=== PATIENT | female | born 1950 | race Asian ===

== ENCOUNTER 2017-12-23 21:45 | Emergency (ER) | payer MEDICARE, OTHER ==
[2017-12-23] MEDS ORDERED: MECLIZINE 12.5 MG TABLET PO STA (21:52)
[2017-12-23] MEDS ORDERED: SODIUM CHLORIDE 0.9% 1,000 ML IV ONE (21:52)
[2017-12-23] MEDS ORDERED: ONDANSETRON 4 MG/2 ML VIAL IVP STA (22:34)
[2017-12-23] MEDS ORDERED: ONDANSETRON ODT 4 MG Prepack 2 TL STA (22:54)
--- NOTE | 2017-12-23 22:54 | ED Physician Documentation ---
History of Present Illness - Stated complaint Stated Complaint: DIZZY - Chief complaint Chief Complaint: Neuro - History obtained from History obtained from: Patient, Family - History of Present Illness Timing: Today - Additonal information Additional information: Patient is a 66 year old female with a history of vertigo who is presenting to the emergency department for vertigo. Patient states that she was going on a walk this evening when she developed vertigo. patient states that her symptoms resolve if she leans her head to the right and come back if she moves again. Review of Systems Ten Systems: 10 systems reviewed and negative Constitutional: denies: Fever, Chills Cardiac: denies: Chest pain / pressure, Palpitations GI: reports: Nausea. denies: Vomiting Neurologic: reports: Other (vertigo) PD PAST MEDICAL HISTORY - Past Medical History Past Medical History: Yes Cardiovascular: High cholesterol Neuro: Parkinson's GI: GERD - Past Surgical History Past Surgical History: Yes General: Cholecystectomy /[employer]: section - Present Medications Home Medications: Ambulatory Orders Medication Instructions Recorded Confirmed Simvastatin 20 mg ORAL QPM 03/06/15 03/06/15 Carbidopa/Levodopa 1 each PO QID 12/23/17 12/23/17 [Carbidopa-Levodopa 10-100 Tab] Cetirizine [ZyrTEC] 10 mg PO DAILY 12/23/17 12/23/17 Meclizine [Antivert] 25 mg PO Q6H #20 tablet 12/23/17 Ondansetron Odt [Zofran] 4 mg TL Q6H PRN #14 tablet 12/23/17 - Allergies Allergies/Adverse Reactions: Allergies Allergy/AdvReac Type Severity Reaction Status Date / Time No Known Drug Allergies Allergy Verified 03/06/15 01:33 - Social History Does the pt smoke?: No Smoking Status: Never smoker Does the pt drink ETOH?: No Does the pt have substance abuse?: No - Immunizations Immunizations are current?: Yes - POLST Patient has POLST: No PD ED PE NORMAL - HEENT HEENT: Atraumatic - Cardiac Cardiac: RRR - Respiratory Respiratory: No respiratory distress - Abdomen Abdomen: Soft, Non distended - Derm Derm: Normal color, Warm and dry - Extremities Extremities: No deformity - Neuro Neuro: No motor deficit, Normal speech Eye Opening: Spontaneous Motor: Obeys Commands Verbal: Oriented GCS Score: 15 PD ED PE EXPANDED - General General: Alert - Neuro Neuro: Alert and Oriented X 3, Normal motor, Normal Sensation, Normal Speech, PERRL, Nystagmus. No: Confused, Disoriented Results - Vitals Vitals: Vital Signs - 24 hr 12/23/17 12/23/17 12/23/17 21:50 22:36 23:02 Temperature 37 C Heart Rate 76 85 77 Respiratory 18 18 18 Rate Blood Pressure 158/96 H 131/103 H 133/93 H O2 Saturation 99 98 98 Oxygen O2 Source Room air PD MEDICAL DECISION MAKING - ED course Complexity details: reviewed old records, reviewed results, re-evaluated patient , considered differential, d/w patient, d/w family ED course: Patient was seen and examined at bedside. Patient's findings were consistent with benign positional vertigo. patient was treated with ns boluse and meclizine. eply maneuver was performed on the patient and her symptoms improved dramatically. patient was treated with zofran for nausea and tylenol for a headache. prescriptions were written and patient was stable for discharge with outpatient follow up. - Sepsis Event Vital Signs: Vital Signs - 24 hr 12/23/17 12/23/17 12/23/17 21:50 22:36 23:02 Temperature 37 C Heart Rate 76 85 77 Respiratory 18 18 18 Rate Blood Pressure 158/96 H 131/103 H 133/93 H O2 Saturation 99 98 98 Oxygen O2 Source Room air Departure - Departure Disposition: 01 Home, Self Care Clinical Impression: Acute onset of severe vertigo Condition: Good Instructions: ED BPV Vertigo, Meclizine Follow-Up: Provider,Other [Primary Care Provider] - Tomorrow Prescriptions: Meclizine [Antivert] 25 mg PO Q6H #20 tablet Ondansetron Odt [Zofran] 4 mg TL Q6H PRN #14 tablet PRN Reason: Nausea / Vomiting Comments: Your symptoms today are being caused by benign positional vertigo. It is important that you stay well hydrated and you can take the meclizine if your symptoms return. You should follow up with your doctor if your symptoms persist. You may return to the emergency department at any time for new, worsening or uncontrollable symptoms. Discharge Date/Time: 12/23/17 23:16
[2017-12-23] MEDS ORDERED: ACETAMINOPHEN 325 MG TABLET PO STA (22:56)
[2017-12-23 23:02] VITALS: BP 133/93
== END 2017-12-23 23:16 | disposition home or self-care (01) ==
LOC: ED 21:45
DX: R42 Dizziness and giddiness (principal); R11.0 Nausea; G20 Parkinson's disease
CPT/HCPCS: 96361; 96374; 99283; A9270

== ENCOUNTER 2020-05-26 17:27 | Emergency (ER) | payer MEDICARE, OTHER ==
[2020-05-26] MEDS ORDERED: ACETAMINOPHEN 325 MG TABLET PO STA (17:39)
[2020-05-26] MEDS ORDERED: ONDANSETRON 4 MG/2 ML VIAL IVP STA (17:39)
--- NOTE | 2020-05-26 17:41 | ED Physician Documentation ---
PD HPI SYNCOPE - Stated complaint Stated Complaint: FAINTED, HIT HEAD - History obtained from History obtained from: Patient - Additional information Additional information: 69-year-old woman with history of vertigo and Parkinson's was at the hardware store and she suddenly felt like she was spinning and then either fell or had a syncopal episode with loss of consciousness. She hit the back of her head on the ground. She has moderate headache and upper neck pain. No other injuries. She denies chest pain or trouble breathing. She is somewhat nauseous. 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 - Present Medications Home Medications: Ambulatory Orders Medication Instructions Recorded Confirmed Simvastatin 20 mg ORAL QPM 03/06/15 03/06/15 Carbidopa/Levodopa 1 each PO QID 12/23/17 12/23/17 [Carbidopa-Levodopa 10-100 Tab] Cetirizine [ZyrTEC] 10 mg PO DAILY 12/23/17 12/23/17 Meclizine [Antivert] 25 mg PO Q6H #20 tablet 12/23/17 Ondansetron Odt [Zofran] 4 mg TL Q6H PRN #14 tablet 12/23/17 Meclizine HCl [Antivert] 25 mg PO QID PRN #20 tablet 05/26/20 Ondansetron Odt [Zofran] 4 mg TL Q6H PRN #10 tablet 05/26/20 - Allergies Allergies/Adverse Reactions: Allergies Allergy/AdvReac Type Severity Reaction Status Date / Time No Known Drug Allergies Allergy Verified 05/26/20 17:44 - Social History Does the pt smoke?: No Smoking Status: Never smoker Does the pt drink ETOH?: No Does the pt have substance abuse?: No - Immunizations Immunizations are current?: Yes - POLST Patient has POLST: No PD ED PE NORMAL - Vitals Vital signs reviewed: Yes - General General: 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, No acute distress - HEENT HEENT: PERRL, EOMI, Other (There is a tender area just posterior to the vertex of the scalp that is slightly raised consistent with a hematoma) - Neck Neck: Other (Mild upper neck tenderness) - Cardiac Cardiac: RRR, No murmur - Respiratory Respiratory: No respiratory distress, Clear bilaterally - Abdomen Abdomen: Non tender, Non distended - Derm Derm: Normal color, Warm and dry - Extremities Extremities: No edema, No calf tenderness / cord - Neuro Neuro: 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, No motor deficit, No sensory deficit, Normal speech Results - Vitals Vitals: Vital Signs - 24 hr 05/26/20 05/26/20 17:30 17:44 Temperature 36.8 C 36.8 C Heart Rate 77 77 Respiratory 18 18 Rate Blood Pressure 148/96 H 148/96 H O2 Saturation 99 99 Oxygen O2 Source Room air - EKG (time done) 1743 Rate: Rate (enter#) (69) Rhythm: NSR, LAE [place]: Normal Intervals: Normal [place] QRS: LVH Ischemia: Non specific changes Computer interpretation: Agree with computer - Labs Labs: Laboratory Tests 05/26/20 05/26/20 05/26/20 17:41 18:12 18:12 WBC 5.7 RBC 4.36 Hgb 13.3 Hct 39.9 MCV 91.5 MCH 30.5 MCHC 33.3 RDW 12.5 Plt Count 238 MPV 10.6 Neut # (Auto) 2.8 Lymph # (Auto) 2.1 [place] # (Auto) 0.5 Eos # (Auto) 0.3 Baso # (Auto) 0.1 Absolute Nucleated RBC 0.00 Nucleated RBC % 0.0 Sodium 140 Potassium 3.8 Chloride 100 L Carbon Dioxide 26 Anion Gap 14.0 H BUN 17 Creatinine 0.9 Estimated GFR (MDRD) 62 L Glucose 112 H POC Whole Bld Glucose 131 H Calcium 9.3 - Rads (name of study) CT head and C-spine without contrast Radiology: EMP read contemporaneously (Degenerative changes of the spine without acute injury) PD MEDICAL DECISION MAKING - ED course ED course: 69-year-old woman had vertigo and a fall with loss of consciousness versus syncope. Her work-up here was negative for acute findings. Departure - Departure Disposition: 01 Home, Self Care Clinical Impression: Acute onset of severe vertigo Syncope Qualifiers: Syncope type: unspecified Qualified Code(s): R55 - Syncope and collapse Head injury Qualifiers: Encounter type: initial encounter Qualified Code(s): S09.90XA - Unspecified injury of head, initial encounter Condition: Good Record reviewed to determine appropriate education?: Yes Instructions: ED Head Injury Closed, ED Dizziness Syncope Fainting W Pre Prescriptions: Meclizine HCl [Antivert] 25 mg PO QID PRN #20 tablet PRN Reason: Dizziness Ondansetron Odt [Zofran] 4 mg TL Q6H PRN #10 tablet PRN Reason: Nausea / Vomiting Comments: Call your doctor to arrange a follow-up appointment, make the next available appointment. In the interim, return anytime if worse or if new symptoms develop.
[2020-05-26] MEDS ORDERED: ONDANSETRON ODT 4 MG TABLET TL STA (17:53)
[2020-05-26 18:18] LABS: BASOPHILS # (AUTO) 0.1 10^3/uL (0.0-0.1); BASOPHILS % (AUTO) 1.1 %; EOSINOPHILS # (AUTO) 0.3 10^3/uL (0.0-0.7); EOSINOPHILS % (AUTO) 4.9 %; HGB - HEMOGLOBIN 13.3 g/dL (12.0-16.0); LYMPHOCYTES # (AUTO) 2.1 10^3/uL (1.5-3.5); LYMPHOCYTES % (AUTO) 36.6 %; MEAN CORPUSCULAR HEMOGLOBIN 30.5 pg (27.0-31.0); MEAN CORPUSCULAR HGB CONC 33.3 g/dL (32.0-36.0); MEAN CORPUSCULAR VOLUME 91.5 fL (81.0-99.0); MEAN PLATELET VOLUME 10.6 fL (7.9-10.8); MONOCYTES # (AUTO) 0.5 10^3/uL (0.0-1.0); MONOCYTES % (AUTO) 8.7 %; NEUTROPHILS # (AUTO) 2.8 10^3/uL (1.5-6.6); NEUTROPHILS % (AUTO) 48.5 %; PLT - PLATELET COUNT 238 10^3/uL (130-450); RED BLOOD COUNT 4.36 10^6/uL (4.20-5.40); RED CELL DISTRIBUTION WIDTH 12.5 % (12.0-15.0); WHITE BLOOD COUNT 5.7 x10^3/uL (4.8-10.8)
[2020-05-26 18:26] LABS: CALCIUM 9.3 mg/dL (8.5-10.3); CREATININE 0.9 mg/dL (0.4-1.0)
--- NOTE | 2020-05-26 19:20 | CT Report ---
PROCEDURE: HEAD WO INDICATIONS: head injury TECHNIQUE: Noncontrast 4.5 mm thick angled axial sections acquired from the foramen magnum to the vertex. For r adiation dose reduction, the following was used: automated exposure control, adjustment of mA and/or kV according to patient size. COMPARISON: None. FINDINGS: Image quality: Excellent. CSF spaces: Basal cisterns are patent. No extra-axial fluid collections. Diffuse volume loss and mi ld enlargement of the ventricles. Brain: No midline shift. No intracranial masses or hemorrhage. Mild diffuse volume loss. skull and face: Calvarium and visualized facial bones are intact, without suspicious lesions. Sinuses: Visualized sinuses and mastoids are clear. IMPRESSION: No acute intracranial abnormality. Reviewed by: Neptali Turner on 05/26/2020 7:18 PM [facility] Approved by: Neptali Turner on 05/26/2020 7:18 PM [facility] Station ID: [id number]
--- NOTE | 2020-05-26 19:29 | CT Report ---
PROCEDURE: CERVICAL SPINE WO INDICATIONS: head injury TECHNIQUE: Noncontrast 3 mm thick sections acquired from the skull base to the T4 level. Sagittal and coronal r eformats were then constructed. For radiation dose reduction, the following was used: automated exp osure control, adjustment of mA and/or kV according to patient size. COMPARISON: None. FINDINGS: Image quality: Excellent. Bones: No fractures or dislocations. Visualized superior ribs are intact. Multilevel degenerative changes. Soft tissues: Prevertebral soft tissues are normal in thickness. No paravertebral hematomas. No ap ical pneumothoraces. IMPRESSION: 1. No acute abnormality of the cervical spine. 2. Multilevel degenerative changes. Reviewed by: Neptali Tunrer on 05/26/2020 7:28 PM [facility] Approved by: Neptali Turner on 05/26/2020 7:28 PM [facility] Station ID: [id number]
[2020-05-26 19:35] VITALS: BP 152/83
== END 2020-05-26 19:48 | disposition home or self-care (01) ==
LOC: ED 17:27
DX: R42 Dizziness and giddiness (principal); R55 Syncope and collapse; S09.90XA Unspecified injury of head, initial encounter; W18.39XA Other fall on same level, initial encounter; Y92.512 Supermarket, store or market as the place of occurrence of the external cause; G20 Parkinson's disease
CPT/HCPCS: 36415; 70450; 72125; 80048; 85025; 93005; 99284; A9270; Q0162

== ENCOUNTER 2023-12-09 08:52 | Outpatient (CLI) | payer MEDICARE, OTHER | END 2023-12-09 23:59 | disposition EMS.NT | LOC: EMS 08:52 | DX: R51.9 Headache, unspecified (principal); R10.11 Right upper quadrant pain; R42 Dizziness and giddiness ==

== ENCOUNTER 2023-12-09 09:49 | Emergency (ER) | payer MEDICARE, OTHER ==
[2023-12-09 10:39] LABS: BASOPHILS # (AUTO) 0.1 10^3/uL (0.0-0.1); BASOPHILS % (AUTO) 1.1 %; EOSINOPHILS # (AUTO) 0.4 10^3/uL (0.0-0.7); EOSINOPHILS % (AUTO) 7.1 %; HCT - HEMATOCRIT 42.2 % (37.0-47.0); LYMPHOCYTES # (AUTO) 1.3 10^3/uL (1.5-3.5); LYMPHOCYTES % (AUTO) 23.9 %; MEAN CORPUSCULAR HEMOGLOBIN 30.3 pg (27.0-31.0); MEAN CORPUSCULAR HGB CONC 33.2 g/dL (32.0-36.0); MEAN CORPUSCULAR VOLUME 91.3 fL (81.0-99.0); MEAN PLATELET VOLUME 10.9 fL (7.9-10.8); MONOCYTES # (AUTO) 0.5 10^3/uL (0.0-1.0); MONOCYTES % (AUTO) 8.8 %; NEUTROPHILS # (AUTO) 3.1 10^3/uL (1.5-6.6); NEUTROPHILS % (AUTO) 58.9 %; PLT - PLATELET COUNT 239 10^3/uL (130-450); RED BLOOD COUNT 4.62 10^6/uL (4.20-5.40); RED CELL DISTRIBUTION WIDTH 13.3 % (12.0-15.0); WHITE BLOOD COUNT 5.2 x10^3/uL (4.8-10.8)
[2023-12-09 10:48] LABS: ALBUMIN 4.5 g/dL (3.2-5.5); ALBUMIN/GLOBULIN RATIO 1.5 (1.0-2.2); BILIRUBIN,TOTAL 0.7 mg/dL (0.2-1.0); CALCIUM 9.6 mg/dL (8.5-10.3); CREATININE 0.8 mg/dL (0.6-1.3); POTASSIUM 3.3 mmol/L (3.5-4.5); TOTAL PROTEIN 7.5 g/dL (6.4-8.9)
[2023-12-09 10:53] LABS: TROPONIN I HIGH SENSITIVITY 7.1 ng/L (2.3-14.8)
--- NOTE | 2023-12-09 11:05 | XRAY Report ---
PROCEDURE: Chest 1V INDICATIONS: Chest pain TECHNIQUE: One view of the chest was acquired. COMPARISON: None. FINDINGS: Surgical changes and devices: None. Lungs and pleura: No pleural effusions or pneumothorax. Lungs are clear. Mediastinum: Mediastinal contours appear normal. Heart size is enlarged. Bones and chest wall: No suspicious bony lesions. Overlying soft tissues appear unremarkable. IMPRESSION: No acute cardiopulmonary process. Reviewed by: Mimi Sanches MD on 12/09/2023 11:03 AM PDT Approved by: Mimi Sanches MD on 12/09/2023 11:03 AM PDT Station ID: [id number]
--- NOTE | 2023-12-09 13:22 | ED Physician Documentation ---
History of Present Illness - Stated complaint Stated Complaint: NAUSEA,HERNANDEZ,RT SD PX - Chief complaint Chief Complaint: Neuro - Additonal information Additional information: 72-year-old female with history of hypercholesterolemia, Parkinson's disease, cholecystectomy presents emergency department for multiple complaints. Patient as well as her who is at bedside are both very poor historians and it is very difficult for me to gather what brings patient here to the emergency department at 1 point in time she talks about how she had an episode of arm pain on her left side that has now fully resolved she discusses some abdominal pain with me that has now fully resolved as well she also says that she took herself off carbidopa-levodopa because she was having some spastic episodes as her describes them a couple weeks ago and has not taken any of her Parkinson's medications now for about a week and a half because she was worried about toxicity. She now complains of some headaches, dizziness, and multiple other complaints. Is very difficult for me to gather when the symptoms started and is very difficult for me to gather more information about these specific symptoms. 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 - Present Medications Home Medications: Ambulatory Orders Medication Instructions Recorded Confirmed Simvastatin 20 mg ORAL QPM 03/06/15 12/09/23 Carbidopa/Levodopa 1 each PO QID 12/23/17 12/09/23 [Carbidopa-Levodopa 10-100 Tab] Cetirizine [ZyrTEC] 10 mg PO DAILY 12/23/17 12/09/23 Meclizine HCl [Antivert] 25 mg PO QID PRN #20 tablet 05/26/20 12/09/23 Rasagiline [Azilect] 1 mg PO DAILY 12/09/23 12/09/23 Sertraline [Zoloft] 50 mg PO DAILY 12/09/23 12/09/23 Solifenacin Succinate 10 mg PO DAILY 12/09/23 12/09/23 - Allergies Allergies/Adverse Reactions: Allergies Allergy/AdvReac Type Severity Reaction Status Date / Time No Known Drug Allergies Allergy Verified 12/09/23 10:05 - Social History Does the pt smoke?: No Smoking Status: Never smoker Does the pt drink ETOH?: No Does the pt have substance abuse?: No - Immunizations Immunizations are current?: Yes - POLST Patient has POLST: No PD ED PE NORMAL - Vitals Vital signs reviewed: Yes - General General: 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, No acute distress, Well developed/nourished - HEENT HEENT: Atraumatic - Cardiac Cardiac: RRR - Respiratory Respiratory: No respiratory distress, Clear bilaterally - Abdomen Abdomen: Normal bowel sounds, Soft, Non tender, No organomegaly - Back Back: No CVA TTP - Derm Derm: Normal color, Warm and dry, No rash - Extremities Extremities: No edema, No calf tenderness / cord - Neuro Neuro: 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, 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9 H Neut # (Auto) 3.1 Lymph # (Auto) 1.3 L [place] # (Auto) 0.5 Eos # (Auto) 0.4 Baso # (Auto) 0.1 Absolute Nucleated RBC 0.00 Nucleated RBC % 0.0 Sodium 140 Potassium 3.3 L Chloride 104 Carbon Dioxide 29 Anion Gap 7.0 BUN 11 Creatinine 0.8 Estimated GFR (MDRD) 71 L Glucose 139 H Calcium 9.6 Magnesium 1.8 Total Bilirubin 0.7 AST 29 ALT 74 H Alkaline Phosphatase 102 Troponin I High Sens 7.1 Total Protein 7.5 Albumin 4.5 Globulin 3.0 Albumin/Globulin Ratio 1.5 Lipase 17 - Rads (name of study) Head CT without Relevant Findings:: Final report received, EMP independent interpretation of test, Other (No acute intracranial pathology) 1 view chest x-ray Relevant Findings:: Final report received, EMP independent interpretation of test, Other (No acute cardiopulmonary process) PD Medical Decision Making - ED course ED course: 72-year-old female presents emergency department for multiple complaints but mainly what I can narrow down to was the fact that patient has not been taking her Parkinson's medication now for about a week and a half. Labs are complete for further evaluation she has no leukocytosis no anemia she does have mild hypokalemia potassium 3.3 but no other acute abnormalities or findings. Head CT was complete as patient was complaining of intermittent dizziness and was not found to have any intracranial pathology or findings. Chest x-ray was also complete for further workup and no acute cardiopulmonary abnormalities are found there as well. Troponin is negative. This point in time I believe that patient needs to restart her carbidopa-levodopa as she was offered a dose here in the emergency department but kindly declined and said that she would reach to start taking it tonight she is also told to follow-up with her neurologist for further evaluation and follow-up with her neurologist outpatient in the future if she would like to go off of her Parkinson's meds. All questions have been answered and patient is safe for discharge at this time. Departure - Departure Disposition: 01 Home, Self Care Clinical Impression: Headache Instructions: Parkinson Disease Comments: Thank you for trusting us with your care. As we discussed I would strongly encourage you to follow-up with your neurologist and restart your carbidopa levodopa and I would encourage you in the future to not go off your medications until you are able to discuss it with your provider first. I would start your carbidopa-levodopa today call your neurologist today and get an appoint with them as soon as possible. We are not seeing any abnormalities on your labs or head CT please come back in if your symptoms change. Forms: PCP List Discharge Date/Time: 12/09/23 14:55
--- NOTE | 2023-12-09 14:00 | CT Report ---
PROCEDURE: Head WO INDICATIONS: dizziness TECHNIQUE: Noncontrast 4.5 mm thick angled axial sections acquired from the foramen magnum to the vertex. For r adiation dose reduction, the following was used: automated exposure control, adjustment of mA and/or kV according to patient size. COMPARISON: 05/26/2020. FINDINGS: Image quality: Excellent. CSF spaces: Basal cisterns are patent. No extra-axial fluid collections. Ventricles are normal in size and shape. Intracranial carotid calcifications. Age-related volume loss and small vessel ischem ic change. Brain: No midline shift. No intracranial masses or hemorrhage. [place]-white matter interface is norm al. Skull and face: Calvarium and visualized facial bones are intact, without suspicious lesions. Sinuses: Visualized sinuses and mastoids are clear. IMPRESSION: No acute intracranial pathology. Reviewed by: Ramsey Santos MD on 12/09/2023 1:58 PM PDT Approved by: Ramsey Santos MD on 12/09/2023 1:58 PM PDT Station ID: [id number]
[2023-12-09 14:56] VITALS: BP 156/82; O2SAT 100
== END 2023-12-09 14:55 | disposition home or self-care (01) ==
LOC: ED 09:49
DX: R51.9 Headache, unspecified (principal); G20.A1 Parkinson's disease without dyskinesia, without mention of fluctuations; E78.00 Pure hypercholesterolemia, unspecified; Z79.899 Other long term (current) drug therapy
CPT/HCPCS: 36415; 80053; 83690; 83735; 84484; 85025; 93005; 99284

== ENCOUNTER 2023-12-24 08:00 | Outpatient (CLI) | payer MEDICARE, OTHER | END 2023-12-24 08:01 | disposition critical access hospital (66) | LOC: EMS 08:00 | DX: R10.11 Right upper quadrant pain (principal) | CPT/HCPCS: A0425; A0429 ==

== ENCOUNTER 2023-12-24 08:21 | Emergency (ER) | payer MEDICARE, OTHER ==
[2023-12-24 08:47] LABS: BASOPHILS # (AUTO) 0.1 10^3/uL (0.0-0.1); BASOPHILS % (AUTO) 0.6 %; EOSINOPHILS # (AUTO) 0.4 10^3/uL (0.0-0.7); EOSINOPHILS % (AUTO) 4.9 %; HCT - HEMATOCRIT 39.6 % (37.0-47.0); HGB - HEMOGLOBIN 12.9 g/dL (12.0-16.0); LYMPHOCYTES # (AUTO) 1.8 10^3/uL (1.5-3.5); LYMPHOCYTES % (AUTO) 20.6 %; MEAN CORPUSCULAR HEMOGLOBIN 30.1 pg (27.0-31.0); MEAN CORPUSCULAR HGB CONC 32.6 g/dL (32.0-36.0); MEAN CORPUSCULAR VOLUME 92.3 fL (81.0-99.0); MEAN PLATELET VOLUME 10.4 fL (7.9-10.8); MONOCYTES # (AUTO) 0.8 10^3/uL (0.0-1.0); MONOCYTES % (AUTO) 8.7 %; NEUTROPHILS # (AUTO) 5.6 10^3/uL (1.5-6.6); NEUTROPHILS % (AUTO) 64.9 %; PLT - PLATELET COUNT 288 10^3/uL (130-450); RED BLOOD COUNT 4.29 10^6/uL (4.20-5.40); RED CELL DISTRIBUTION WIDTH 13.2 % (12.0-15.0); WHITE BLOOD COUNT 8.6 x10^3/uL (4.8-10.8)
[2023-12-24] MEDS: LORazepam 2 MG/ML VIAL IVP STA ×2 (08:48→11:18)
[2023-12-24] MEDS: MORPHINE 10 MG/ML VIAL IVP STA (08:48)
[2023-12-24] MEDS: ONDANSETRON 4 MG/2 ML VIAL IVP STA (08:49)
[2023-12-24] MEDS: KETOROLAC 15 MG/ML VIAL IVP STA (08:50)
--- NOTE | 2023-12-24 08:50 | ED Physician Documentation ---
PD HPI ABD PAIN - Stated complaint Stated Complaint: ABD PX - Chief complaint Chief Complaint: Abd Pain - History obtained from History obtained from: Patient, EMS - History of Present Illness Timing - onset: Today (1-2 hours ago after breakfast. she states has been out of her Parkinsons meds for 1-2 days and states they are at pharmacy for icking up today.) Timing - details: Abrupt onset, Still present Quality: Cramping, Aching, Pain Location: RUQ Radiation: Right flank Associated symptoms: Nausea. 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 - Present Medications Home Medications: Ambulatory Orders Medication Instructions Recorded Confirmed Simvastatin 20 mg ORAL QPM 03/06/15 12/24/23 Carbidopa/Levodopa 1 each PO QID 12/23/17 12/24/23 [Carbidopa-Levodopa 10-100 Tab] Cetirizine [ZyrTEC] 10 mg PO DAILY 12/23/17 12/24/23 Rasagiline [Azilect] 1 mg PO DAILY 12/09/23 12/24/23 Sertraline [Zoloft] 50 mg PO DAILY 12/09/23 12/24/23 Solifenacin Succinate 10 mg PO DAILY 12/09/23 12/24/23 - Allergies Allergies/Adverse Reactions: Allergies Allergy/AdvReac Type Severity Reaction Status Date / Time No Known Drug Allergies Allergy Verified 12/24/23 08:37 - Social History Does the pt smoke?: No Smoking Status: Never smoker Does the pt drink ETOH?: No Does the pt have substance abuse?: No - Immunizations Immunizations are current?: Yes - POLST Patient has POLST: No PD ED PE NORMAL - Vitals Vital signs reviewed: Yes - General General: 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, Well developed/nourished, Other (having continued writhing, werpentine movement of legs and arms.) - Cardiac Cardiac: RRR, No murmur - Respiratory Respiratory: Clear bilaterally - Abdomen Abdomen: Normal bowel sounds, Soft, Non distended, No organomegaly, Other (te nder with some guarding RUQ to right flank. No rash nor sores. Rest of abd not tender. ) Results - Vitals Vitals: Vital Signs - 24 hr 12/24/23 12/24/23 12/24/23 08:30 08:59 10:56 Temperature 36.4 C L Heart Rate 94 80 77 Respiratory 31 H 16 20 Rate Blood Pressure 126/74 139/93 H O2 Saturation 97 97 97 12/24/23 12/24/23 12/24/23 12:23 14:24 14:45 Temperature Heart Rate 70 62 Respiratory 16 16 16 Rate Blood Pressure 161/95 H 151/77 H O2 Saturation 99 99 12/24/23 12/24/23 15:36 15:51 Temperature Heart Rate 62 Respiratory 16 13 Rate Blood Pressure 148/83 H O2 Saturation 100 Oxygen O2 Source Room air - Labs Labs: Laboratory Tests 12/24/23 12/24/23 12/24/23 08:39 08:39 10:00 WBC 8.6 RBC 4.29 Hgb 12.9 Hct 39.6 MCV 92.3 MCH 30.1 MCHC 32.6 RDW 13.2 Plt Count 288 MPV 10.4 Neut # (Auto) 5.6 Lymph # (Auto) 1.8 Mayes # (Auto) 0.8 Eos # (Auto) 0.4 Baso # (Auto) 0.1 Absolute Nucleated RBC 0.00 Nucleated RBC % 0.0 Sodium 136 Potassium 4.1 Chloride 102 Carbon Dioxide 28 Anion Gap 6.0 BUN 21 H Creatinine 1.0 Estimated GFR (MDRD) 55 L Glucose 116 H Calcium 9.4 Total Bilirubin 0.3 AST 28 ALT 12 Alkaline Phosphatase 253 H Total Protein 6.9 Albumin 4.0 Globulin 2.9 Albumin/Globulin Ratio 1.4 Lipase 26 Urine Color YELLOW Urine Clarity CLEAR Urine pH 7.0 Ur Specific [place] 1.010 Urine Protein NEGATIVE Urine Glucose (UA) NEGATIVE Urine Ketones NEGATIVE Urine Occult Blood NEGATIVE Urine Nitrite NEGATIVE Urine Bilirubin NEGATIVE Urine Urobilinogen 0.2 (NORMAL) Ur Leukocyte Esterase TRACE H Urine RBC 0-5 Urine WBC 0-3 Ur Squamous Epith Cells FEW Squamous Urine Bacteria Rare Ur Microscopic Review INDICATED Urine Culture Comments INDICATED PD Medical Decision Making - ED course Complexity details: reviewed results (alk phos slightly up but lipase and lfts are good. WBC okay. UA without infection. CT without explanation. Consider transient CBD blockage. duodenitis, etc. She has enough movement with the Parkinsons that could not get MRCP. ), re-evaluated patient (she has rested without the writhing movements with pain and benzo meds. Also given dose of her levodopa, which may have had subsequent effect in the time she was here. CT abd and labs did not show acute process. CBD dilated 1.8 cm but no noted obstruction and labs are good with ALk Phos sl up. ), considered differential (right upper to flank abd pain, consider CBD, pancreas, kidney infection, stone, right diverticultiis,e tc. She is having writhing movements that are bothersome for her. She states has had similar in thepast from Parkinsons. Spouse says too she has had similar writhing serpentine movments if no meds.), d/w patient, d/w family (spouse) Departure - Departure Disposition: 01 Home, Self Care Clinical Impression: Right sided abdominal pain, Parkinson's disease with dyskinesia Condition: Stable Record reviewed to determine appropriate education?: Yes Instructions: ED Abdominal Pain Female Non-Specific Abdominal Pain Comments: Your blood tests and urine test and CT scan did not show any obvious acute abnormality. There was some dilation of the common bile duct and of course your gallbladder is missing. The increased size of the bile duct is common variation related to the gallbladder being out. Sometimes the can indicate a partial blockage of the common bile duct. However your blood tests appear normal with regard to pancreas and liver and white count. It does not seem like a blockage of that. No other abnormalities seen on your CT scan, in particular no kidney stones, pancreas inflammation, colitis or diverticulitis etc. There could have been some intestinal irritation or cramping or even a temporary sludging of the bile duct that led to symptoms but appears normal at this time. At this point I would suggest just liquids only or bland food for a day or 2. Tylenol 4 times daily to help with any pains. You could also try antacids such as Maalox or Mylanta. Recheck if not improved with that over the next day or 2 and return if increasing symptoms. Resume your usual Parkinson's medicines and hopefully that will help with the increased movements. They seem to be of decreased here now with the medicines we gave here. Resuming your usual medications hopefully would be back to your baseline symptoms. Forms: PCP List Discharge Date/Time: 12/24/23 16:01
[2023-12-24] MEDS: CARBIDOPA/LEVODOPA 10 MG/100 MG TABLET PO STA (08:57)
[2023-12-24 09:01] LABS: ALBUMIN/GLOBULIN RATIO 1.4 (1.0-2.2); BILIRUBIN,TOTAL 0.3 mg/dL (0.2-1.0); CALCIUM 9.4 mg/dL (8.5-10.3); POTASSIUM 4.1 mmol/L (3.5-4.5); TOTAL PROTEIN 6.9 g/dL (6.4-8.9)
[2023-12-24] MEDS: diazePAM INJ 5 MG/ML SYRINGE IM STA (09:01)
[2023-12-24 10:06] LABS: BILIRUBIN,URINE NEGATIVE (NEGATIVE); GLUCOSE, URINE (UA) NEGATIVE (NEGATIVE); KETONES,URINE (UA) NEGATIVE (NEGATIVE); LEUKOCYTE ESTERASE, URINE TRACE (NEGATIVE); NITRITE,URINE NEGATIVE (NEGATIVE); OCCULT BLOOD,URINE NEGATIVE (NEGATIVE); PROTEIN,URINE NEGATIVE (NEGATIVE); UROBILINOGEN,URINE 0.2 (NORMAL) E.U./dL (NORMAL)
[2023-12-24 10:08] LABS: CLARITY,URINE CLEAR (CLEAR)
[2023-12-24 10:17] LABS: BACTERIA,URINE Rare /HPF (None Seen); RBC,URINE 0-5 /HPF (0-5); SQUAMOUS EPITHELIAL CELL,UR FEW Squamous (<= Few); WBC,URINE 0-3 /HPF (0-5)
[2023-12-24] MEDS: SODIUM CHLORIDE 0.9% 1,000 ML IV STA (10:23)
[2023-12-24] MEDS ORDERED: iohexoL-300 100 ML VIAL ONE (10:29)
--- NOTE | 2023-12-24 12:24 | CT Report ---
PROCEDURE: Abdomen/Pelvis W INDICATIONS: right upper abd pain today CONTRAST: Omni 300 100ml TECHNIQUE: After the administration of intravenous contrast, a CT scan of the abdomen and pelvis was performed. Images were recorded and evaluated at appropriate window settings. Reformats: coronal and sagittal. F or radiation dose reduction, the following was used: automated exposure control, adjustment of mA and /or kV according to patient size. COMPARISON: None. FINDINGS: Image quality: Diagnostic. Lower chest: Heart is enlarged. Liver: No solid mass. Gallbladder: Removed. Biliary tree: Common bile duct measures 1.8 cm. No visualized obstruction. No priors for comparison. Spleen: No splenomegaly. Pancreas: No pancreatic ductal dilation. Adrenals: No adrenal nodule. Kidneys and ureters: No hydronephrosis. No renal cystic lesion which requires follow up. No solid mas s. Bilateral simple renal cysts. Stomach, bowel and peritoneum: No gastric or small bowel dilation. . No pathologic free fluid. Modera te right colonic wall. Mild circumferential thickening is present at the rectum. Lymph nodes: No central or retroperitoneal adenopathy. Vessels: No infrarenal aortic aneurysm. Patent portal vein. PELVIS Reproductive organs: Unremarkable. Bladder: No abnormal wall thickening, accounting for underdistention. Pelvic lymph nodes: No pelvic adenopathy by size criteria. Bones: No aggressive osseous abnormality. Other: No significant ventral or inguinal hernia. IMPRESSION: Cholecystectomy. Common bile duct measures 1.8 cm. This is prominent. However, this may be related to postcholecystectomy sequela. No priors are available for comparison. Recommend correlation with labo ratory values and if concern for obstruction is present, nonemergent MRCP may be obtained. Moderate right colonic stool without obstruction. Reviewed by: Mimi Sanches MD on 12/24/2023 12:23 PM PDT Approved by: Mimi Sanches MD on 12/24/2023 12:23 PM PDT Station ID: [id number]
[2023-12-24] MEDS: iohexoL-300 100 ML VIAL IVP ONE (13:06)
[2023-12-24 15:54] VITALS: BP 148/83; O2SAT 100
== END 2023-12-24 16:01 | disposition home or self-care (01) ==
LOC: EDUNIT# → ED 08:21
DX: R10.11 Right upper quadrant pain (principal); G20.B1 Parkinson's disease with dyskinesia, without mention of fluctuations; E78.00 Pure hypercholesterolemia, unspecified; Z79.899 Other long term (current) drug therapy
CPT/HCPCS: 36415; 74177; 80053; 81001; 83690; 85025; 87086; 96374; 96375; 96376; 99284; 99285; A9270; J2060; Q9967; 81003

== ENCOUNTER 2024-03-03 23:27 | Emergency (ER) | payer MEDICARE, OTHER ==
--- NOTE | 2024-03-04 00:05 | ED Physician Documentation ---
History of Present Illness - Stated complaint Stated Complaint: HERNANDEZ/DIZZY - Chief complaint Chief Complaint: Neuro - Additonal information Additional information: 73-year-old female with history of Parkinson's with dyskinesia, headaches, vert igo, cholecystectomy presents with headache and dizziness.History clarified from triage notes. Patient states that she sometimes has mild generalized headaches, intermittent, not sudden or severe. In addition, she has intermittent episodes of brief vertigo, sometimes with position changes, that are not constant, and not gradual worsening. No visual or hearing changes, fevers or chills, neck colleen n or stiffness, syncope, new or worsening confusion. She has nausea without vomiting. She has mild intermittent cough. No shortness of breath. No chest or back pain. She does note intermittent mild epigastric pain in the last week, sometimes worse with eating, that is not affected by exertion. No red or black in stool. No urinary symptoms. No focal numbness or weakness. She is consistent with her medications currently. Of note, patient and spouse have some difficulty providing full history, consistent with prior notes. However, she denies any other new concerns repeatedly. Per chart review, she has been seen with headache, dizziness, nausea in the past. Prior notes, on difficulty obtaining history in setting of patient and spouse being poor historians. Sometimes, she has not been taking her Parkinson's medications, such as carbidopalevodopa, in December 11 2023 note. She has also been seen for vertigo multiple times in the past here. Fluids and meclizine appear to have helped. She had a head CT in December 2023 showing no acute pathology per radiology read on 12/08. ROS Constitutional: no fever, no chills Eyes: no visual disturbance, no discharge Ears, Nose, Mouth, Throat: no rhinorrhea, no sore throat Cardiovascular: no chest pain, no palpitations Respiratory: no cough, no shortness of breath Gastrointestinal: +upper abdominal pain, no vomiting, no diarrhea Genitourinary: no dysuria, no hematuria Musculoskeletal: no back pain, no neck stiffness Skin: no rash, no wound Neurological: no focal weakness, no focal numbness PD PAST MEDICAL HISTORY - Past Medical History Cardiovascular: High cholesterol Neuro: Parkinson's GI: GERD - Past Surgical History Past Surgical History: Yes 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 - Present Medications Home Medications: Ambulatory Orders Medication Instructions Recorded Confirmed Simvastatin 20 mg ORAL QPM 08/31/15 06/19/24 Carbidopa/Levodopa 1 each PO QID 12/23/17 12/24/23 [Carbidopa-Levodopa 10-100 Tab] Cetirizine [ZyrTEC] 10 mg PO DAILY 12/23/17 12/24/23 Rasagiline [Azilect] 1 mg PO DAILY 12/09/23 12/24/23 Sertraline [Zoloft] 50 mg PO DAILY 12/09/23 12/24/23 Solifenacin Succinate 10 mg PO DAILY 12/09/23 12/24/23 Meclizine [Antivert] 12.5 mg PO Q6H PRN #8 tablet 03/04/24 - Allergies Allergies/Adverse Reactions: Allergies Allergy/AdvReac Type Severity Reaction Status Date / Time No Known Drug Allergies Allergy Verified 12/24/23 08:37 - Social History Does the pt smoke?: No Smoking Status: Never smoker Does the pt drink ETOH?: No Does the pt have substance abuse?: No - Immunizations Immunizations are current?: Yes - POLST Patient has POLST: No PD ED PE NORMAL - Free text exam Free text exam: Const: no acute distress, non toxic appearing; calm, conversant, pleasant Eyes: PERRLA, EOMI ENT: mucous membranes moist Neck: supple, non-tender Resp: no respiratory distress, clear to auscultation bilaterally Card: regular rate and rhythm, no murmurs Abd: mild epigastric tenderness, negative Reagan's sign, no other tenderness, no rigidity or rebound or guarding Back: no T or L spine tenderness, no CVA tenderness bilaterally Extrem: no deformities, no swelling bilateral lower extremities, 2+ distal pulses all extremities Neuro: ANOx4. it support consultant 2-12 intact. No rotatory or vertical nystagmus. Increased tone all extremities. Sensation intact to light touch all extremities. No ankle clonus bilaterally. 5/5 motor strength all extremities. Mild rigidity with movement in setting of Parkinson's; coordination however overall intact. No pronator drift. No dysarthria. No neglect. Grossly normal cognition. Skin: no rash, warm and dry Results - Vitals Vitals: Vital Signs - 24 hr 03/03/24 03/04/24 23:33 00:50 Temperature 36.6 C Heart Rate 81 82 Respiratory 16 18 Rate Blood Pressure 177/91 H 169/82 H O2 Saturation 99 100 Oxygen O2 Source Room air - EKG (time done) EKG: Normal sinus rhythm, no clear acute ischemia though poor quality in the setting of Parkinson's, no immediately concerning interval prolongation. EKG releavant findings:: EKG personally interpreted by author of this note. Relevant findings are: - Labs Labs: Laboratory Tests 03/04/24 03/04/24 03/04/24 00:32 00:32 00:32 WBC 5.3 RBC 4.66 Hgb 13.7 Hct 42.5 MCV 91.2 MCH 29.4 MCHC 32.2 RDW 12.5 Plt Count 201 MPV 11.8 H Neut # (Auto) 3.7 Lymph # (Auto) 0.9 L [place] # (Auto) 0.5 Eos # (Auto) 0.1 Baso # (Auto) 0.1 Absolute Nucleated RBC 0.00 Nucleated RBC % 0.0 Sodium 136 Potassium 3.3 L Chloride 103 Carbon Dioxide 25 Anion Gap 8.0 BUN 15 Creatinine 0.8 Estimated GFR (MDRD) 71 L Glucose 120 H Calcium 8.6 Total Bilirubin 0.5 AST 19 ALT 20 Alkaline Phosphatase 110 Troponin I High Sens 4.9 Total Protein 7.1 Albumin 4.1 Globulin 3.0 Albumin/Globulin Ratio 1.4 Lipase 25 Urine Color Urine Clarity Urine pH Ur Specific [place] Urine Protein Urine Glucose (UA) Urine Ketones Urine Occult Blood Urine Nitrite Urine Bilirubin Urine Urobilinogen Ur Leukocyte Esterase Urine RBC Urine WBC Ur Squamous Epith Cells Urine Bacteria Ur Microscopic Review Urine Culture Comments Nasal Adenovirus (PCR) Nasal B. parapertussis DNA (PCR) Nasal Coronavir 229E PCR Nasal Coronavir HKU1 PCR Nasal Coronavir NL63 PCR Nasal Coronavir OC43 PCR Nasal Enterovir/Rhinovir PCR Nasal Influenza B PCR Nasal Influenza A PCR Nasal Parainfluen 1 PCR Nasal Parainfluen 2 PCR Nasal Parainfluen 3 PCR Nasal Parainfluen 4 PCR Nasal RSV (PCR) Nasal B.pertussis DNA PCR Nasal C.pneumoniae (PCR) Gerardo Human Metapneumo PCR Nasal M.pneumoniae (PCR) Nasal SARS-CoV-2 (PCR) 03/04/24 03/04/24 00:48 01:05 WBC RBC Hgb Hct MCV MCH MCHC RDW Plt Count MPV Neut # (Auto) Lymph # (Auto) [place] # (Auto) Eos # (Auto) Baso # (Auto) Absolute Nucleated RBC Nucleated RBC % Sodium Potassium Chloride Carbon Dioxide Anion Gap BUN Creatinine Estimated GFR (MDRD) Glucose Calcium Total Bilirubin AST ALT Alkaline Phosphatase Troponin I High Sens Total Protein Albumin Globulin Albumin/Globulin Ratio Lipase Urine Color YELLOW Urine Clarity CLEAR Urine pH 7.0 Ur Specific [place] 1.010 Urine Protein NEGATIVE Urine Glucose (UA) NEGATIVE Urine Ketones NEGATIVE Urine Occult Blood SMALL H Urine Nitrite NEGATIVE Urine Bilirubin NEGATIVE Urine Urobilinogen 0.2 (NORMAL) Ur Leukocyte Esterase NEGATIVE Urine RBC 6-10 H Urine WBC 0-3 Ur Squamous Epith Cells RARE Squamous Urine Bacteria Rare Ur Microscopic Review INDICATED Urine Culture Comments NOT INDICATED Nasal Adenovirus (PCR) NOT DETECTED Nasal B. parapertussis DNA (PCR) NOT DETECTED Nasal Coronavir 229E PCR NOT DETECTED Nasal Coronavir HKU1 PCR NOT DETECTED Nasal Coronavir NL63 PCR NOT DETECTED Nasal Coronavir OC43 PCR NOT DETECTED Nasal Enterovir/Rhinovir PCR NOT DETECTED Nasal Influenza B PCR NOT DETECTED Nasal Influenza A PCR NOT DETECTED Nasal Parainfluen 1 PCR NOT DETECTED Nasal Parainfluen 2 PCR NOT DETECTED Nasal Parainfluen 3 PCR NOT DETECTED Nasal Parainfluen 4 PCR NOT DETECTED Nasal RSV (PCR) NOT DETECTED Nasal B.pertussis DNA PCR NOT DETECTED Nasal C.pneumoniae (PCR) NOT DETECTED Gerardo Human Metapneumo PCR NOT DETECTED Nasal M.pneumoniae (PCR) NOT DETECTED Nasal SARS-CoV-2 (PCR) NOT DETECTED - Rads (name of study) CXR Relevant Findings:: EMP independent interpretation of test, See rad report (I agree with radiology reads of imaging on my independent review of imaging. ), Other PD Medical Decision Making - ED course ED course: This patient presents with multiple concerns, including headache, dizziness, upper abdominal pain. Of note, she has long history of headaches and dizziness. Tension headaches or migraines are possible, along with what appears to be clinically peripheral vertigo currently. She is currently reassuring/baseline neurologic exam, along with head imaging in the last few months, and I do not feel repeat CT head or CT head and neck is likely to benefit her currently. 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 She has improved with fluids and meclizine in the past, and I am giving this. Regarding her epigastric pain, this is suggestive of gastritis or PUD, however out of caution I am obtaining EKG and troponin, with ACS much less likely with patient denying to me multiple times any worsening with exertion but rather worsening with eating sometimes. I am also obtaining CBC, CMP, lipase, chest x-ray, viral swab. I will closely reassess. Patient currently appears stable, comfortable. EKG: Normal sinus rhythm, no clear acute ischemia though poor quality in the setting of Parkinson's, no immediately concerning interval prolongation. Morphology overall does appear similar to December 09, 2023 EKG. Labs: CBC with no cytosis, anemia, or thrombocytopenia. CMP with mild hypokalemia, no LFT elevation, creatinine within normal limits. Lipase reassuring. Troponin reassuring in setting of 1 week symptoms with no worsening of pain in >6hrs per discussion with patient. CXR: I agree with radiology reads of imaging on my independent review of CXR with radiology read below: "FINDINGS: Surgical changes and devices: None. Lungs and pleura: No pleural effusions or pneumothorax. Lungs are mildly abnormal with a mild degree of interstitial prominence. Mediastinum: Mediastinal contours appear normal. Heart size is normal. Bones and chest wall: No suspicious bony lesions. Overlying soft tissues appear unremarkable. IMPRESSION: No definite acute cardiopulmonary process. Mild interstitial prominence which can be secondary to prior smoking history. No pneumonia seen. No subdiaphragmatic free air. Reviewed by: Kane Elias MD on 03/04/2024 12:57 AM PDT" UA: small blood suitable for outpatient follow up but no clear infection. Instructions being given to patient regarding this. Viral panel negative. Blood pressure is elevated but suitable for outpatient follow up, with no evidence of hypertensive emergency here clinically. Patient also given Benadryl and appears stable, comfortable, afebrile, well- perfused, at baseline, with no focal neurologic deficits. Epigastric pain improved with treatment, with history and course continuing to argue against cardiac cause; mild gastritis possible. In this setting, she appears stable for discharge. Chronic headaches and vertigo remain possible. Results of work up today were discussed with the patient. She and spouse understand plan and importance of follow up and have no new concerns. Per discussion with patient and with her good response to meclizine, short course prescribed and careful use discussed. Patient aware they should not drive. Repeat exams and vital signs reassuring. Patient questions answered and plan reviewed. Strong return precautions given. Patient discharged. Departure - Departure Disposition: 01 Home, Self Care Clinical Impression: Dizziness, Epigastric pain Headache Qualifiers: Headache type: unspecified Headache chronicity pattern: unspecified pattern Intractability: not intractable Qualified Code(s): R51.9 - Headache, unspecified Condition: Good Instructions: ED Abdominal Pain Female Non-Specific Abdominal Pain, ED Dizziness [facility] Prescriptions: Meclizine [Antivert] 12.5 mg PO Q6H PRN #8 tablet PRN Reason: Dizziness Comments: It was a pleasure taking care of you today. It is important to fully read and understand the below. Please ask us if you have any questions. Your testing here today is overall reassuring. You improved with fluids, meclizine, Tylenol and Benadryl. Please see your primary doctor within 2 to 3 days for reassessment. In addition, please discuss the small blood in your urine for reassessment and additional testing. 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 If your symptoms change or worsen, it is very important you immediately seek medical care. If you have any new or worsening pain, shortness of breath, fever, vomiting, persistent dizziness, visual or hearing changes, confusion, numbness, weakness, or anything else that concerns you, please immediately seek medical care. If you have been prescribed any medications: please read the drug package inserts on how to properly use the medication and any potential side effects. If you had labs (blood tests) or imaging (CT scan or x-rays) done during your visit: please follow up on the results of these with your primary care doctor, as discussed. In addition, please know the results we received today may be preliminary. Our usual practice is to follow up on tests within a few days of a patient's discharge from the Emergency Department and notify you of any changes. These may lead to changes to your treatment plan. However, the best way to obtain and interpret these test results is through your Primary Care Provider. If you need to update your contact information, please stop by the administrative assistant front desk and alert the Registration personnel before you leave the Emergency Department. Thank you for the opportunity to participate in your healthcare. We are always here and happy to see you in the future. Forms: PCP List Discharge Date/Time: 03/04/24 02:57
[2024-03-04] MEDS: SODIUM CHLORIDE 0.9% 1,000 ML IV STA (00:35)
[2024-03-04] MEDS: MECLIZINE 12.5 MG TABLET PO STA (00:35)
[2024-03-04] MEDS: ACETAMINOPHEN 325 MG TABLET PO STA (00:35)
[2024-03-04 00:52] VITALS: BP 169/82; O2SAT 100
[2024-03-04 00:52] LABS: BASOPHILS # (AUTO) 0.1 10^3/uL (0.0-0.1); BASOPHILS % (AUTO) 0.9 %; EOSINOPHILS # (AUTO) 0.1 10^3/uL (0.0-0.7); EOSINOPHILS % (AUTO) 1.9 %; HCT - HEMATOCRIT 42.5 % (37.0-47.0); HGB - HEMOGLOBIN 13.7 g/dL (12.0-16.0); LYMPHOCYTES # (AUTO) 0.9 10^3/uL (1.5-3.5); LYMPHOCYTES % (AUTO) 17.4 %; MEAN CORPUSCULAR HEMOGLOBIN 29.4 pg (27.0-31.0); MEAN CORPUSCULAR HGB CONC 32.2 g/dL (32.0-36.0); MEAN CORPUSCULAR VOLUME 91.2 fL (81.0-99.0); MEAN PLATELET VOLUME 11.8 fL (7.9-10.8); MONOCYTES # (AUTO) 0.5 10^3/uL (0.0-1.0); MONOCYTES % (AUTO) 9.6 %; NEUTROPHILS # (AUTO) 3.7 10^3/uL (1.5-6.6); NEUTROPHILS % (AUTO) 69.8 %; PLT - PLATELET COUNT 201 10^3/uL (130-450); RED BLOOD COUNT 4.66 10^6/uL (4.20-5.40); RED CELL DISTRIBUTION WIDTH 12.5 % (12.0-15.0); WHITE BLOOD COUNT 5.3 x10^3/uL (4.8-10.8)
[2024-03-04 00:56] LABS: ALBUMIN 4.1 g/dL (3.2-5.5); ALBUMIN/GLOBULIN RATIO 1.4 (1.0-2.2); BILIRUBIN,TOTAL 0.5 mg/dL (0.2-1.0); CALCIUM 8.6 mg/dL (8.5-10.3); CREATININE 0.8 mg/dL (0.6-1.3); POTASSIUM 3.3 mmol/L (3.5-4.5); TOTAL PROTEIN 7.1 g/dL (6.4-8.9)
--- NOTE | 2024-03-04 00:58 | XRAY Report ---
PROCEDURE: Chest 1V INDICATIONS: abdominal pain TECHNIQUE: One view of the chest was acquired. COMPARISON: None. FINDINGS: Surgical changes and devices: None. Lungs and pleura: No pleural effusions or pneumothorax. Lungs are mildly abnormal with a mild degre e of interstitial prominence. Mediastinum: Mediastinal contours appear normal. Heart size is normal. Bones and chest wall: No suspicious bony lesions. Overlying soft tissues appear unremarkable. IMPRESSION: No definite acute cardiopulmonary process. Mild interstitial prominence which can be secondary to prior smoking history. No pneumonia seen. No s ubdiaphragmatic free air. Reviewed by: Kane Elias MD on 03/04/2024 12:57 AM PDT Approved by: Kane Elias MD on 03/04/2024 12:57 AM PDT Station ID: [id number]
[2024-03-04 01:22] LABS: BILIRUBIN,URINE NEGATIVE (NEGATIVE); GLUCOSE, URINE (UA) NEGATIVE (NEGATIVE); KETONES,URINE (UA) NEGATIVE (NEGATIVE); LEUKOCYTE ESTERASE, URINE NEGATIVE (NEGATIVE); NITRITE,URINE NEGATIVE (NEGATIVE); OCCULT BLOOD,URINE SMALL (NEGATIVE); PROTEIN,URINE NEGATIVE (NEGATIVE); UROBILINOGEN,URINE 0.2 (NORMAL) E.U./dL (NORMAL)
[2024-03-04 01:38] LABS: CLARITY,URINE CLEAR (CLEAR)
[2024-03-04 01:40] LABS: BACTERIA,URINE Rare /HPF (None Seen); SQUAMOUS EPITHELIAL CELL,UR RARE Squamous (<= Few); WBC,URINE 0-3 /HPF (0-5)
[2024-03-04] MEDS: diphenhydrAMINE INJ 50 MG/ML VIAL IVP STA (01:52)
[2024-03-04 02:12] LABS: B. PARAPERTUSSIS- RESP PCR PAN NOT DETECTED; B. PERTUSSIS- RESP PCR PANEL NOT DETECTED; C. PNEUMONIAE- RESP PCR PANEL NOT DETECTED; CORONAVIRUS 229E-RESP PCR NOT DETECTED; CORONAVIRUS HKU1-RESP PCR NOT DETECTED; CORONAVIRUS NL63-RESP PCR NOT DETECTED; CORONAVIRUS OC43-RESP PCR NOT DETECTED; HUMAN METAPNEUMOVIRUS NOT DETECTED; INFLUENZA A- RESP PCR PANEL NOT DETECTED; INFLUENZA B - RESP PCR PANEL NOT DETECTED; M. PNEUMONIAE- RESP PCR PANEL NOT DETECTED; PARAINFLUENZA VIRUS 1 NOT DETECTED; PARAINFLUENZA VIRUS 2 NOT DETECTED; PARAINFLUENZA VIRUS 3 NOT DETECTED; PARAINFLUENZA VIRUS 4 NOT DETECTED; RHINOVIRUS/ENTEROVIRUS NOT DETECTED; RSV- RESP PCR PANEL NOT DETECTED; SARS-CoV-2 -RESP PCR PANEL NOT DETECTED
== END 2024-03-04 02:57 | disposition home or self-care (01) ==
LOC: ED 23:27
DX: R42 Dizziness and giddiness (principal); R51.9 Headache, unspecified; R03.0 Elevated blood-pressure reading, without diagnosis of hypertension; R31.9 Hematuria, unspecified; G20.A1 Parkinson's disease without dyskinesia, without mention of fluctuations
CPT/HCPCS: 36415; 71045; 80053; 81001; 83690; 84484; 85025; 87633; 93005; 96374; 99284; A9270; J1200; 81003; 87086

== ENCOUNTER 2024-03-20 19:16 | Emergency (ER) | payer MEDICARE, OTHER ==
[2024-03-20] MEDS: KETOROLAC 15 MG/ML VIAL IVP STA (20:23)
[2024-03-20] MEDS: ONDANSETRON 4 MG/2 ML VIAL IVP STA (20:23)
[2024-03-20] MEDS: FAMOTIDINE 20 MG/2 ML VIAL IVP STA (20:23)
[2024-03-20] MEDS: SODIUM CHLORIDE 0.9% 1,000 ML IV STA (20:23)
[2024-03-20 20:42] LABS: BASOPHILS # (AUTO) 0.1 10^3/uL (0.0-0.1); EOSINOPHILS # (AUTO) 0.3 10^3/uL (0.0-0.7); HCT - HEMATOCRIT 41.6 % (37.0-47.0); HGB - HEMOGLOBIN 13.3 g/dL (12.0-16.0); LYMPHOCYTES # (AUTO) 1.5 10^3/uL (1.5-3.5); LYMPHOCYTES % (AUTO) 23.3 %; MEAN CORPUSCULAR HEMOGLOBIN 29.5 pg (27.0-31.0); MEAN CORPUSCULAR VOLUME 92.2 fL (81.0-99.0); MEAN PLATELET VOLUME 10.6 fL (7.9-10.8); MONOCYTES # (AUTO) 0.6 10^3/uL (0.0-1.0); MONOCYTES % (AUTO) 9.3 %; NEUTROPHILS # (AUTO) 3.9 10^3/uL (1.5-6.6); NEUTROPHILS % (AUTO) 62.2 %; PLT - PLATELET COUNT 250 10^3/uL (130-450); RED BLOOD COUNT 4.51 10^6/uL (4.20-5.40); RED CELL DISTRIBUTION WIDTH 12.6 % (12.0-15.0); WHITE BLOOD COUNT 6.2 x10^3/uL (4.8-10.8)
--- NOTE | 2024-03-20 20:53 | ED Physician Documentation ---
History of Present Illness - Stated complaint Stated Complaint: ABD PX - Chief complaint Chief Complaint: Abd Pain - History obtained from History obtained from: Patient, Family (spouse) - Additonal information Additional information: 73-year-old woman with history of Parkinson's, GERD, multiple prior ER visits for abdominal pain (03/03 and 12/23) presents with similar pain again today that is diffuse, sharp, primarily located in the epigastrium, burning, occurring for the past few months and worsening tonight. Patient also endorses some nonbloody diarrhea but denies vomiting. She does state that she feels a little bit nauseous. Denies fever. 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 - Present Medications Home Medications: Ambulatory Orders Medication Instructions Recorded Confirmed Simvastatin 20 mg ORAL QPM 03/06/15 12/24/23 Carbidopa/Levodopa 1 each PO QID 12/23/17 12/24/23 [Carbidopa-Levodopa 10-100 Tab] Cetirizine [ZyrTEC] 10 mg PO DAILY 12/23/17 12/24/23 Rasagiline [Azilect] 1 mg PO DAILY 12/09/23 12/24/23 Sertraline [Zoloft] 50 mg PO DAILY 12/09/23 12/24/23 Solifenacin Succinate 10 mg PO DAILY 12/09/23 12/24/23 Meclizine [Antivert] 12.5 mg PO Q6H PRN #8 tablet 03/04/24 Famotidine [Pepcid] 20 mg PO BID PRN #60 tablet 03/20/24 - Allergies Allergies/Adverse Reactions: Allergies Allergy/AdvReac Type Severity Reaction Status Date / Time No Known Drug Allergies Allergy Verified 03/20/24 19:42 - Social History Does the pt smoke?: No Smoking Status: Never smoker Does the pt drink ETOH?: No Does the pt have substance abuse?: No - Immunizations Immunizations are current?: Yes - POLST Patient has POLST: No PD ED PE NORMAL - Vitals Vital signs reviewed: Yes - General General: 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, No acute distress, Well developed/nourished, Other (significant resting tremor c/w Parkinsons) - HEENT HEENT: Atraumatic, PERRL, EOMI, Moist mucous membranes, Pharynx benign - Neck Neck: Supple, no meningeal sign - Cardiac Cardiac: RRR - Respiratory Respiratory: No respiratory distress, Clear bilaterally - Abdomen Abdomen: Non tender, Non distended, Other (discomfort to palpation in epigastrium) - Derm Derm: Normal color, Warm and dry Results - Vitals Vitals: Vital Signs - 24 hr 03/20/24 03/20/24 19:39 20:30 Temperature 36.6 C Heart Rate 77 72 Respiratory 12 21 Rate Blood Pressure 181/115 H 163/98 H O2 Saturation 96 99 Oxygen O2 Source Room air - Labs Labs: Laboratory Tests 03/20/24 03/20/24 03/20/24 20:14 20:14 20:52 WBC 6.2 RBC 4.51 Hgb 13.3 Hct 41.6 MCV 92.2 MCH 29.5 MCHC 32.0 RDW 12.6 Plt Count 250 MPV 10.6 Neut # (Auto) 3.9 Lymph # (Auto) 1.5 [place] # (Auto) 0.6 Eos # (Auto) 0.3 Baso # (Auto) 0.1 Absolute Nucleated RBC 0.00 Nucleated RBC % 0.0 Sodium 141 Potassium 3.6 Chloride 105 Carbon Dioxide 30 Anion Gap 6.0 BUN 15 Creatinine 0.9 Estimated GFR (MDRD) 62 L Glucose 90 Calcium 9.0 Total Bilirubin 0.6 AST 21 ALT 6 L Alkaline Phosphatase 127 H Total Protein 7.0 Albumin 4.3 Globulin 2.7 Albumin/Globulin Ratio 1.6 Lipase 20 Urine Color DARK YELLOW Urine Clarity CLEAR Urine pH 7.0 Ur Specific [place] 1.015 Urine Protein NEGATIVE Urine Glucose (UA) NEGATIVE Urine Ketones NEGATIVE Urine Occult Blood TRACE-INTA Urine Nitrite NEGATIVE Urine Bilirubin NEGATIVE Urine Urobilinogen 0.2 (NORMAL) Ur Leukocyte Esterase NEGATIVE Ur Microscopic Review NOT INDICATED Urine Culture Comments NOT INDICATED PD Medical Decision Making - ED course ED course: 73-year-old woman presents with abdominal pain that is acute on chronic tonight, located mostly in epigastrium. this has been worked up previously on 12/23 and 03/[address] a/p without acute pathology found. suspect worsening and progression of her gerd. she has not yet followed up with GI and this seems like the prudent next step. return precautions given. Departure - Departure Disposition: 01 Home, Self Care Clinical Impression: Abdominal pain Condition: Stable Instructions: Abdominal Pain Follow-Up: Julio Marquez MD [Physician No Access] - Prescriptions: Famotidine [Pepcid] 20 mg PO BID PRN #60 tablet PRN Reason: Abdominal Pain Comments: You were seen in the emergency department for abdominal pain. Prescription sent to [facility]. Please follow-up with gastroenterology and return to the emergency department if you have any new or worsening symptoms or other concerns. Forms: PCP List
[2024-03-20 21:00] LABS: ALBUMIN 4.3 g/dL (3.2-5.5); ALBUMIN/GLOBULIN RATIO 1.6 (1.0-2.2); BILIRUBIN,TOTAL 0.6 mg/dL (0.2-1.0); CREATININE 0.9 mg/dL (0.6-1.3); POTASSIUM 3.6 mmol/L (3.5-4.5)
[2024-03-20 21:06] LABS: BILIRUBIN,URINE NEGATIVE (NEGATIVE); GLUCOSE, URINE (UA) NEGATIVE (NEGATIVE); KETONES,URINE (UA) NEGATIVE (NEGATIVE); LEUKOCYTE ESTERASE, URINE NEGATIVE (NEGATIVE); NITRITE,URINE NEGATIVE (NEGATIVE); OCCULT BLOOD,URINE TRACE-INTA (NEGATIVE); PROTEIN,URINE NEGATIVE (NEGATIVE); UROBILINOGEN,URINE 0.2 (NORMAL) E.U./dL (NORMAL)
[2024-03-20 21:13] LABS: CLARITY,URINE CLEAR (CLEAR)
[2024-03-20 22:05] VITALS: BP 165/88; O2SAT 1
== END 2024-03-20 21:56 | disposition home or self-care (01) ==
LOC: ED 19:16
DX: R10.13 Epigastric pain (principal); G89.29 Other chronic pain; K21.9 Gastro-esophageal reflux disease without esophagitis
CPT/HCPCS: 36415; 80053; 81001; 81003; 83690; 85025; 87086; 99283

== ENCOUNTER 2024-03-21 15:44 | Outpatient (CLI) | payer MEDICARE, OTHER | END 2024-03-21 23:59 | disposition EMS.NT | LOC: EMS 15:44 | DX: R07.89 Other chest pain (principal) ==

== ENCOUNTER 2024-03-21 16:59 | Emergency (ER) | payer MEDICARE, OTHER ==
[2024-03-21 18:45] LABS: BASOPHILS # (AUTO) 0.1 10^3/uL (0.0-0.1); EOSINOPHILS # (AUTO) 0.1 10^3/uL (0.0-0.7); EOSINOPHILS % (AUTO) 1.6 %; HCT - HEMATOCRIT 43.3 % (37.0-47.0); LYMPHOCYTES # (AUTO) 1.3 10^3/uL (1.5-3.5); LYMPHOCYTES % (AUTO) 16.2 %; MEAN CORPUSCULAR HEMOGLOBIN 29.4 pg (27.0-31.0); MEAN CORPUSCULAR HGB CONC 32.3 g/dL (32.0-36.0); MEAN CORPUSCULAR VOLUME 90.8 fL (81.0-99.0); MEAN PLATELET VOLUME 10.4 fL (7.9-10.8); MONOCYTES # (AUTO) 0.4 10^3/uL (0.0-1.0); MONOCYTES % (AUTO) 5.2 %; NEUTROPHILS # (AUTO) 5.9 10^3/uL (1.5-6.6); NEUTROPHILS % (AUTO) 75.7 %; PLT - PLATELET COUNT 243 10^3/uL (130-450); RED BLOOD COUNT 4.77 10^6/uL (4.20-5.40); RED CELL DISTRIBUTION WIDTH 12.4 % (12.0-15.0); WHITE BLOOD COUNT 7.7 x10^3/uL (4.8-10.8)
[2024-03-21] MEDS: LIDOCAINE VISCOUS 2% 15 ML UDC MM STA (18:53)
[2024-03-21 19:02] LABS: ALBUMIN 4.4 g/dL (3.2-5.5); ALBUMIN/GLOBULIN RATIO 1.4 (1.0-2.2); BILIRUBIN,TOTAL 0.7 mg/dL (0.2-1.0); CALCIUM 9.5 mg/dL (8.5-10.3); CREATININE 0.8 mg/dL (0.6-1.3); POTASSIUM 3.4 mmol/L (3.5-4.5); TOTAL PROTEIN 7.5 g/dL (6.4-8.9)
[2024-03-21 19:08] LABS: BILIRUBIN,URINE NEGATIVE (NEGATIVE); GLUCOSE, URINE (UA) NEGATIVE (NEGATIVE); KETONES,URINE (UA) NEGATIVE (NEGATIVE); LEUKOCYTE ESTERASE, URINE NEGATIVE (NEGATIVE); NITRITE,URINE NEGATIVE (NEGATIVE); OCCULT BLOOD,URINE SMALL (NEGATIVE); PROTEIN,URINE NEGATIVE (NEGATIVE); UROBILINOGEN,URINE 0.2 (NORMAL) E.U./dL (NORMAL)
[2024-03-21 19:17] LABS: CLARITY,URINE CLEAR (CLEAR)
[2024-03-21 19:23] LABS: BACTERIA,URINE Rare /HPF (None Seen); SQUAMOUS EPITHELIAL CELL,UR RARE Squamous (<= Few); WBC,URINE 0-3 /HPF (0-5)
--- NOTE | 2024-03-21 19:56 | ED Physician Documentation ---
PD HPI ABD PAIN - Stated complaint Stated Complaint: ABD PX,RT LEG NUMBNESS - Chief complaint Chief Complaint: Abd Pain - History obtained from History obtained from: Patient, Family - History of Present Illness Quality: Aching Location: Epigastric Radiation: Chest Improved by: Eating Associated symptoms: No: Fever, Nausea, Vomiting, Hematemesis, Diarrhea, Constipation, Melena, Hematochezia, Dysuria, Hematuria, Chest pain, Dizzy, Near syncope / syncope, Loss of appetite, Weight loss Similar symptoms before: Diagnosis Recently seen: Emergency Dept - Additional information Additional information: This is a 73-year-old female who has a history of Parkinson's who presents with epigastric pain rating into the sternum. Symptoms present for the last 5 to 6 weeks, occasionally companied by dizziness. She has not had any of nausea or vomiting, no diarrhea or constipation, No difficulty breathing, no urinary symptoms. She has not had a fever or chills.She was seen for same yesterday and diagnosed with GERD and started on famotidine. She has taken a single tablet as she just received the medication today. She has not had any worsening symptoms but she has the same symptoms she had yesterday. The patient also noted a brief episode of right leg numbness from the ankle up to the knee that occurred after she was sitting in 1 position for quite some time earlier today but has since resolved. She had no other areas of numbness or tingling, and no confusion, alteration in mental status, facial droop, and does not currently have the symptoms. Review of Systems Constitutional: reports: Reviewed and negative Eyes: reports: Reviewed and negative Ears: reports: Reviewed and negative Nose: reports: Reviewed and negative Throat: reports: Reviewed and negative Cardiac: reports: Reviewed and negative Respiratory: reports: Reviewed and negative GI: reports: Abdominal Pain : reports: Reviewed and negative Skin: reports: Reviewed and negative Musculoskeletal: reports: Reviewed and negative Neurologic: reports: Numbness. 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 - Present Medications Home Medications: Ambulatory Orders Medication Instructions Recorded Confirmed Carbidopa/Levodopa 1 each PO QID 12/23/17 03/21/24 [Carbidopa-Levodopa 10-100 Tab] Cetirizine [ZyrTEC] 10 mg PO DAILY 12/23/17 03/21/24 Rasagiline [Azilect] 1 mg PO DAILY 12/09/23 03/21/24 Sertraline [Zoloft] 50 mg PO DAILY 12/09/23 03/21/24 Solifenacin Succinate 10 mg PO DAILY 12/09/23 03/21/24 Meclizine [Antivert] 12.5 mg PO Q6H PRN #8 tablet 03/04/24 03/21/24 Famotidine [Pepcid] 20 mg PO BID PRN #60 tablet 03/20/24 03/21/24 Donepezil HCl [Aricept] 5 mg PO DAILY 03/21/24 03/21/24 Entacapone [Comtan] 300 mg PO TID 03/21/24 03/21/24 - Allergies Allergies/Adverse Reactions: Allergies Allergy/AdvReac Type Severity Reaction Status Date / Time No Known Drug Allergies Allergy Verified 03/21/24 17:04 - Social History Does the pt smoke?: No Smoking Status: Never smoker Does the pt drink ETOH?: No Does the pt have substance abuse?: No - Immunizations Immunizations are current?: Yes - POLST Patient has POLST: No PD ED PE NORMAL - Vitals Vital signs reviewed: Yes - General General: 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, No acute distress, Well developed/nourished - HEENT HEENT: Atraumatic, PERRL, EOMI, Moist mucous membranes - Neck Neck: Supple, no meningeal sign, No JVD - Cardiac Cardiac: RRR, No murmur, No gallop, No rub - Respiratory Respiratory: No respiratory distress, Clear bilaterally - Abdomen Abdomen: Normal bowel sounds, Soft, Non distended, Other (Mild midepigastric tenderness without guarding) - Derm Derm: Normal color, No rash - Extremities Extremities: No deformity, No tenderness to palpate, Normal ROM s pain, No edema, No calf tenderness / cord, Other - Neuro Neuro: 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, 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, No motor deficit, No sensory deficit, Normal speech, Other (Normal sensation and range of motion of the right lower leg) Eye Opening: Spontaneous Motor: Obeys Commands Verbal: Oriented GCS Score: 15 - Psych Psych: Normal mood, Normal affect Results - Vitals Vitals: Vital Signs - 24 hr 03/21/24 03/21/24 17:04 19:09 Temperature 36.5 C Heart Rate 74 8 L Respiratory 18 22 Rate Blood Pressure 166/84 H 172/85 H O2 Saturation 98 97 Oxygen O2 Source Room air - Labs Labs: Laboratory Tests 03/21/24 03/21/24 03/21/24 18:40 18:40 19:01 WBC 7.7 RBC 4.77 Hgb 14.0 Hct 43.3 MCV 90.8 MCH 29.4 MCHC 32.3 RDW 12.4 Plt Count 243 MPV 10.4 Neut # (Auto) 5.9 Lymph # (Auto) 1.3 L [place] # (Auto) 0.4 Eos # (Auto) 0.1 Baso # (Auto) 0.1 Absolute Nucleated RBC 0.00 Nucleated RBC % 0.0 Sodium 137 Potassium 3.4 L Chloride 102 Carbon Dioxide 27 Anion Gap 8.0 BUN 14 Creatinine 0.8 Estimated GFR (MDRD) 71 L Glucose 112 H Calcium 9.5 Total Bilirubin 0.7 AST 21 ALT 33 Alkaline Phosphatase 112 Total Protein 7.5 Albumin 4.4 Globulin 3.1 Albumin/Globulin Ratio 1.4 Lipase 24 Urine Color YELLOW Urine Clarity CLEAR Urine pH 7.0 Ur Specific [place] 1.010 Urine Protein NEGATIVE Urine Glucose (UA) NEGATIVE Urine Ketones NEGATIVE Urine Occult Blood SMALL H Urine Nitrite NEGATIVE Urine Bilirubin NEGATIVE Urine Urobilinogen 0.2 (NORMAL) Ur Leukocyte Esterase NEGATIVE Urine RBC 6-10 H Urine WBC 0-3 Ur Squamous Epith Cells RARE Squamous Urine Bacteria Rare Ur Microscopic Review INDICATED Urine Culture Comments NOT INDICATED PD Medical Decision Making - ED course Complexity details: reviewed old records, reviewed results, re-evaluated patient, considered differential, d/w patient, d/w family ED course: 73-year-old female with a past medical history of Parkinson's who presents with abdominal pain and dizziness that has been present for 5 to 6 weeks. She was seen for same yesterday. She also had a brief episode of right leg "falling asleep" earlier today which has since resolved. The patient is well-appearing here and physical exam, afebrile nontoxic and has no reproducible abdominal pain or peritoneal signs on exam, no acute neurologic findings, has normal range of motion of the right leg with normal sensation. Differentials considered included GERD, anginal equivalent, pneumonia, cholelithiasis or cholecystitis, colitis,Pancreatitis, among others. I also considered sciatica, stroke, nerve compression for her right leg symptoms. Patient has similar right leg symptoms in the past. Given her reassuring physical exam, and ongoing symptoms for the last 5 to 6 weeks have low suspicion for ACS or other acute abdominal process. We did obtain labs today which are reassuring including CBC and CMP, and the patient was given Maalox with lidocaine with resolution of her symptoms. I think likely her symptoms are related to GERD and recommend she continue the famotidine, we discussed diet modifications. Anticipate improvement with the famotidine kicks in. Patient and has been advised to follow-up with PCP for this issue if it persist however. I also discussed return precautions. In regards to the right leg numbness, I think this is likely a nerve compression temporarily from her positioning, she does not currently have the symptoms and low suspicion for stroke or TIA and given patient's history of sciatica, this could be contributing. She is symptom-free at this time no additional treatment is indicated. Patient feels improved and ready for discharge home, I discussed return precautions in detail with her and her . Departure - Departure Disposition: 01 Home, Self Care Clinical Impression: Gastroesophageal reflux disease Qualifiers: Esophagitis presence: esophagitis presence not specified Qualified Code(s): K21.9 - Gastro-esophageal reflux disease without esophagitis Condition: Good Instructions: GERD Dc Comments: Janny, Your symptoms are still very likely due to reflux. Since she restarted the medication today, I will take some time to improve your symptoms, typically a week or so. In the meantime, continue to eat a low-fat diet, avoid any spicy foods, eat small meals but more frequently if needed. Stay upright for at least 2 hours after eating and try to walk or be active after eating wh ich will help with digestion. If you develop a fever or worsening symptoms, return to the ER. Otherwise please follow-up with your primary doctor for this issue. Forms: PCP List
[2024-03-21 20:17] VITALS: BP 152/82; O2SAT 98
== END 2024-03-21 20:05 | disposition home or self-care (01) ==
LOC: ED 16:59
DX: K21.9 Gastro-esophageal reflux disease without esophagitis (principal); G20.A1 Parkinson's disease without dyskinesia, without mention of fluctuations; E78.00 Pure hypercholesterolemia, unspecified
CPT/HCPCS: 36415; 80053; 81001; 81003; 83690; 85025; 87086; 99283; 99284